=== PATIENT | male | born 1960 | race Caucasian/White ===

== ENCOUNTER 2025-03-22 10:07 | Emergency (ER) | payer MEDICARE, SELFPAY ==
[2025-03-22] VITALS (7 sets, daily range): BP systolic 110–176; BP diastolic 71–89
--- NOTE | 2025-03-22 10:18 | ED.GENMED ---
History of Present Illness
General
Chief Complaint: Breathing Problem
Time Seen by Provider: 03/22/25 10:08
History of Present Illness
History of Present Illness:
Patient is a 64-year-old male with past medical history of traumatic brain injury, hypertension, insomnia, secondary parkinsonism, hyperlipidemia, GERD, dysphagia, history of alcohol abuse, and depression, who currently resides at [facility]
residential care, here today for evaluation of approximately 4 days of a cough associated with congestion. He also endorses shortness of breath and chest tightness. He did have a fever of 101 �F 4 days ago but this has since resolved. No vomiting
or diarrhea. Of note, the patient also reports sustaining a fall last week landing on his right elbow. He sustained a small abrasion and initially had pain but this has since resolved. No pain related to the fall currently.
Past History
Past History
ED Past Medical History: HTN, Psychiatric (depression, schizophrenia, ETOHism) and Other (Traumatic brain injury, Cellulitis)
Social History
Tobacco: Smoker
Alcohol: Occasional
Drug: Former user
Personal:
Living: fpc ([facility] care)
Employment: Other
Family History
Family History: Other
Review of Systems
Review of Systems
All Other Systems: ROS reviewed and negative except as documented in HPI and ROS
Phy Exam
Physical Exam
Physical Exam:
GENERAL: Alert , in no apparent distress
EYE: Normal conjunctiva
NECK: Supple
ENT: o/p clr, mmm.
CARDIAC: Regular rate and rhythm .
LUNGS: Clear breath sounds bilaterally, no acute respiratory distress, no wheezes/rales/rhonchi
NEUROLOGICAL: Alert and oriented, no focal neuro deficits
SKIN: Warm and dry, skin intact.
MUSCULOSKELETAL: No edema, well perfused. Small abrasion along right elbow.
PSYCH: Normal and appropriate interaction.
Scores
Heart Failure Risk
Heart Failure Risk Score: Not Applicable
Course
Orders/Labs/Results
Orders:
Orders
03/22/25 10:12
EKG [Electrocardiogram (*1)] Urgent
Reason for Study: Shortness of Breath
EKG- Treatment ONCE
Chest [CR Chest - 2 Views ] Urgent
Comment:
Reason For Exam: cough sob
03/22/25 10:21
COVID-19 Antigen Urgent
Source: Nasal Swab
Complete Blood Count/With Diff Urgent
NT-proBNP Urgent
Troponin I Urgent
Influenza A+B Rapid Molecular Urgent
JAZMIN Source: Nasal Swab
Specimen Description:
03/22/25 10:22
Respiratory Syncytial Virus Urgent
JAZMIN Source: Nasal Swab
Specimen Description:
Date Specimen was Collected: 03/22/25
Time Specimen was Collected: 10:19
03/22/25 12:01
CT Chest With Iv Contrast Urgent
Comment:
Reason For Exam: abnormal cxr, cough sob
Basic Metabolic Panel Urgent
Abnormal Lab Results
03/22/25 03/22/25
10:21 12:01
RBC 3.62 L 10^6/uL
(4.70-6.10)
Hgb 10.4 L g/dL
(13.0-18.0)
Hct 31.9 L %
(39.0-52.0)
MCHC 32.6 L g/dL
(33.0-37.0)
RDW 15.3 H %
(11.5-14.5)
Abs Immat Gran (auto) 0.2 H 10^3/uL
(0-0.05)
Absolute Lymphs (auto) 1.1 L 10^3/uL
(1.2-3.4)
Absolute Monos (auto) 1.0 H 10^3/uL
(0.1-0.6)
Immature Gran % 2.9 H %
(0-0.5)
Lymphocytes % 14.8 L %
(20.5-51.1)
Monocytes % 13.1 H %
(1.7-9.3)
BUN 24 H mg/dl
(9-20)
03/22/25 10:21
03/22/25 12:01
Vital Signs
Initial and Last Documented VS:
Initial Vital Signs
Temp
97.8 F
03/22/25 10:09
Last Documented Vital Signs
Temp Pulse Resp BP Pulse Ox
97.7 F 59 20 165/89 98
03/22/25 16:48 03/22/25 16:48 03/22/25 16:48 03/22/25 16:48 03/22/25 16:48
MDM/Problems Addressed
Differential Diagnosis Includes:
Patient is a 64-year-old male with past medical history of traumatic brain injury, hypertension, insomnia, secondary parkinsonism, hyperlipidemia, GERD, dysphagia, history of alcohol abuse, and depression, who currently resides at [facility]
residential care, here today for evaluation of approximately 4 days of a cough associated with congestion, chest tightness, and shortness of breath. Overall, patient well-appearing on examination. Vital signs grossly within normal limits.
Physical examination described above. Will initiate viral testing. Will obtain screening labs, EKG, and chest x-ray. Will discuss with the care facility for additional information.
03/22/2025 14:42: Screening labs reveal mild anemia with a hemoglobin of 10.4. BUN 24 with a normal creatinine. COVID testing negative. BNP is elevated to 2039 however the patient does not appear fluid overloaded and does not appear to be in a
CHF exacerbation at this time. Troponin negative. Chest x-ray obtained revealed asymmetry of lung markings with possible atelectasis. Radiology recommended further evaluation with CT. This was performed which reveals findings most consistent
with pneumonia. There may be an element of mild atelectasis. There is also mild adenopathy and a trace right pleural effusion. I did contact the facility and spoke with the nurse longitudinal float operator who confirms the above history and is in agreement with
treatment plan at this time. The patient appears well overall and suitable for outpatient antibiotic therapy. Will provide therapy with azithromycin and amoxicillin. Recommend supportive measures and close follow-up with the patient's primary
care doctor. All questions answered. Stable for discharge.
*Pulse Oximetry
Patient hypoxic: no
*EKG
Interpreted by ED Provider?: Yes
EKG Intrepretation Date: 03/22/25
EKG Intrepretation Time: 10:35
Interpretation: normal
Comparison EKG: no changes
Heart Rate: 56
Rate: bradycardiac
Rhythm: sinus
[place]: normal axis
Interval: normal interval
QRS Pattern: normal QRS
Ischemia: no ischemia
*Critical Care Note
Total Time (30-74mins, 75-104mins- exclusive of procedures): Not Applicable
ED Attending Note
-
Portions of this chart may have been created with voice recognition software.� Occasional wrong word or��sound alike� substitutions may have occurred due to the inherent limitations of voice recognition software.
Discharge Plan
Departure
Patient Disposition: Home (Routine Discharge)
Date of Disposition: 03/22/25
Time of Disposition: 16:37
Patient with high blood pressure during this ER visit?: Yes
Condition: Fair
Covid-19: Negative COVID-19
Discharge Problem:
Pneumonia
Instructions: Pneumonia in adults - ED (DC)
Prescriptions:
New
amoxicillin 500 mg tablet
1,000 mg PO Q8H 7 Days Qty: 42 0RF
azithromycin 250 mg tablet
See Rx Instructions .ROUTE .COMPLEX 5 Days Qty: 6 0RF
Rx Instructions:
Take 2 tablets days 1
Take 1 tablet days 2-5
No Action
amantadine HCl 100 MG capsule
100 mg PO BID
trazodone 150 MG tablet
75 mg PO HS
divalproex 250 MG tablet,delayed release (DR/EC)
750 mg PO BID
omeprazole 20 MG capsule,delayed release(DR/EC)
20 mg PO DAILY
atenolol 50 MG tablet
50 mg PO DAILY
buspirone [BuSpar] 15 MG tablet
7.5 mg PO BID
lisinopril 20 MG tablet
20 mg PO BID
gabapentin 400 MG capsule
400 mg PO TID
melatonin 3 MG tablet
3 mg PO HS
aspirin 81 MG tablet,delayed release (DR/EC)
81 mg PO DAILY
clonidine HCl 0.2 MG tablet
0.2 mg PO BID
hydrochlorothiazide 25 MG tablet
25 mg PO DAILY
acetaminophen 325 MG tablet
650 mg PO Q6HPRN PRN (Reason: mild pain)
hydrocortisone 1 APPLIC cream
1 applic topical BID
diphenhydramine HCl [Banophen] 25 MG capsule
25 mg PO Q6HPRN PRN (Reason: skin rash)
clotrimazole 1 APPLIC solution
1 applic topical DAILY
Referrals:
Brodie Pompa DO [Family Provider, Internal Medicine] - Follow up in 5-7 days
Activity Restrictions/Additional Instructions:
You were seen today for evaluation of cough and shortness of breath.
Your blood work reveals mild anemia with a hemoglobin of 10.4.
We performed a CAT scan of your chest which reveals findings consistent with pneumonia which is a lung infection. There is also enlarged lymph nodes (adenopathy) present and fluid along the lower part of the right side of the lungs.
We are starting you on 2 oral antibiotics to take as directed.
Follow-up with your doctor within the next 5 to 7 days for close reevaluation.
Return for any new, worsening, or concerning symptoms.
Interventions
Interventions:
*Risk Screen - Suicide Last Done: 03/22/25 10:09
*General Assessment Last Done: 03/22/25 10:09
*Neglect/Abuse Screening Last Done: 03/22/25 10:09
*ED- Fall Risk Assessment Last Done: 03/22/25 10:11
*ED COVID-19 Vaccine History Last Done: 03/22/25 11:14
*Nursing Disposition Last Done: 03/22/25 16:48
ED- Cardiac Assessment Last Done: 03/22/25 11:12
ED- Pulmonary Assessment Last Done: 03/22/25 11:12
Discharge Date and Time
Print Language: LATVIAN
[2025-03-22 10:33] LABS: Hematocrit 31.9 % (39.0-52.0); Hemoglobin 10.4 g/dL (13.0-18.0); Mean Corp Hgb Conc. 32.6 g/dL (33.0-37.0); Mean Corpuscular Volume 88.1 fL (80.0-94.0); Nucleated Red Blood Cells % 0 % (-); Platelet Count 247 10^3/uL (130-400); Red Cell Dist. Width 15.3 % (11.5-14.5)
[2025-03-22 10:47] LABS: COVID-19 Antigen Negative (Negative)
[2025-03-22 11:11] LABS: Troponin I < 0.012 ng/ml
[2025-03-22 12:32] LABS: Blood Urea Nitrogen 24 mg/dl (9-20); Calcium 8.8 mg/dl (8.4-10.2); Carbon Dioxide 30 mmol/L (22-30); Chloride 106 mmol/L (98-107); Glucose 89 mg/dl (70-99); Potassium 4.4 mmol/L (3.5-5.1); Sodium 141 mmol/L (135-145); eGFR > 60.00
== END 2025-03-22 18:13 | disposition home or self-care (01) ==
LOC: EMR 10:07
PROVIDERS: Physician Assistant; EMERGENCY PHYSICIAN Emergency Medicine; FAMILY PHYSICIAN Internal Medicine Geriatric Medicine
DX: J18.9 Pneumonia, unspecified organism (principal); I10 Essential (primary) hypertension; E78.5 Hyperlipidemia, unspecified; F17.200 Nicotine dependence, unspecified, uncomplicated; Z87.820 Personal history of traumatic brain injury; Z11.52 Encounter for screening for COVID-19
CPT/HCPCS: 99285; 71046; 71260; 80048; 83880; 84484; 85025; 87502; 87807; 87811; 93005; Q9967

== ENCOUNTER 2025-07-12 12:51 | Emergency (ER) | payer OTHER, SELFPAY ==
[2025-07-12 12:51] VITALS: BMI 26.5
[2025-07-12 12:57] VITALS: BP 159/78
[2025-07-12 13:27] LABS: Hematocrit 34.5 % (39.0-52.0); Hemoglobin 11.4 g/dL (13.0-18.0); Mean Corp Hgb Conc. 33.0 g/dL (33.0-37.0); Mean Corpuscular Volume 92.0 fL (80.0-94.0); Nucleated Red Blood Cells % 0 % (-); Platelet Count 307 10^3/uL (130-400); Red Cell Dist. Width 14.4 % (11.5-14.5)
[2025-07-12 13:53] LABS: ALT (SGPT) 12 U/L (0-50); AST (SGOT) 17 U/L (17-59); Albumin 4.4 g/dl (3.5-5.0); Alkaline Phosphatase 45 U/L (38-126); Blood Urea Nitrogen 24 mg/dl (9-20); Calcium 9.4 mg/dl (8.4-10.2); Carbon Dioxide 29 mmol/L (22-30); Chloride 104 mmol/L (98-107); Glucose 100 mg/dl (70-99); Potassium 4.7 mmol/L (3.5-5.1); Sodium 140 mmol/L (135-145); Total Protein 7.3 g/dl (6.3-8.2); eGFR > 60.00
[2025-07-12 16:41] LABS: Urine Character Clear (Clear)
--- NOTE | 2025-07-12 16:43 | ED.GENMED ---
History of Present Illness
General
Chief Complaint: Fall
Time Seen by Provider: 07/12/25 14:42
History of Present Illness
History of Present Illness:
Patient is a 61-year-old male past medical history of TBI, bipolar disorder and hypertension who presents after multiple falls at his facility this afternoon. Symptoms around the falls are unclear. Patient reports ambulate dysfunction at baseline
and states that he feels like his knees are tight
Past History
Past History
ED Past Medical History: HTN, Psychiatric (depression, schizophrenia, ETOHism) and Other (Traumatic brain injury, Cellulitis)
Social History
Tobacco: Smoker
Alcohol: Occasional
Drug: Former user
Personal:
Living: residential ([facility])
Employment: Other
Family History
Family History: Other
Phy Exam
General Physical Exam
General Presentation: well appearing and no apparent distress
General Skin: warm and dry
General Habitus: normal
General Mental: alert
General Hydration: appears well hydrated
ENT Exam
ENT Exam: EOMI, pharynx normal, neck supple and normocephalic
Eye Exam
Eye Exam: PERRL, cornea clear and conjunctiva normal
Cardiovascular Exam
Cardiovascular Exam: regular rate/rhythm, no edema, no murmur and normal peripheral pulses
Pulmonary Exam
Pulmonary Exam: lungs clear, no respiratory distress, no rales, no crackles, no rhonchi, no stridor, no wheezing and no cough
Gastrointestinal Exam
Gastrointestinal Exam: normal bowel sounds, non tender, soft, no organomegaly, no pulsatile mass and non distended
Neurological Exam
Neurological Exam: alert, oriented x3, no motor deficits and speech normal
Musculoskeletal Exam
Musculoskeletal Exam: full ROM and no edema
Skin Exam
Skin Exam: normal color, warm/dry, no rash and no petechia
Psychiatric Exam
Psychiatric Exam: normal mood/affect
Course
Orders/Labs/Results
Orders:
Orders
07/12/25 13:09
Complete Blood Count/With Diff Urgent
Comprehensive Metabolic Panel Urgent
07/12/25 15:04
CT Head W/o Iv Contrast Urgent
Comment:
Reason For Exam: falls
07/12/25 16:29
Urinalysis Reflex To Culture Urgent
Date Specimen was Collected: 07/12/25
Time Specimen was Collected: 15:53
Urine Microscopic Reflex Cult Urgent
Abnormal Lab Results
07/12/25 07/12/25
13:09 16:29
RBC 3.75 L 10^6/uL
(4.70-6.10)
Hgb 11.4 L g/dL
(13.0-18.0)
Hct 34.5 L %
(39.0-52.0)
MPV 11.5 H fL
(7.4-10.4)
BUN 24 H mg/dl
(9-20)
Glucose 100 H mg/dl
(70-99)
Urine Bacteria (Reflex) Few A
(Negative)
Urine Albumin (Reflex) 1+ A
(Neg - Trace)
07/12/25 13:09
07/12/25 13:09
Vital Signs
Initial and Last Documented VS:
Initial Vital Signs
Temp Pulse Resp BP Pulse Ox
36.8 C 54 16 159/78 100
07/12/25 12:57 07/12/25 12:57 07/12/25 12:57 07/12/25 12:57 07/12/25 12:57
Last Documented Vital Signs
Temp Pulse Resp BP Pulse Ox
36.8 C 54 16 159/78 100
07/12/25 12:57 07/12/25 12:57 07/12/25 12:57 07/12/25 12:57 07/12/25 16:43
MDM/Problems Addressed
Differential Diagnosis Includes:
Able to range knees without difficulty. No bony tenderness. No external signs of trauma on physical exam. CT head obtained and negative for any acute intracranial pathology. CBC without leukocytosis. Patient afebrile. UA negative for any
obvious infection. Patient medically stable to return to facility. Will will arrange transport. Return precautions discussed and documented in his discharge paperwork
*Pulse Oximetry
SaO2: 100
Oxygen Mode of Delivery: Room air
Patient hypoxic: no
*Critical Care Note
Total Time (30-74mins, 75-104mins- exclusive of procedures): Not Applicable
ED Attending Note
-
Portions of this chart may have been created with voice recognition software.� Occasional wrong word or��sound alike� substitutions may have occurred due to the inherent limitations of voice recognition software.
Discharge Plan
Departure
Patient Disposition: Home (Routine Discharge)
Date of Disposition: 07/12/25
Time of Disposition: 17:25
Patient with high blood pressure during this ER visit?: No
Discharge Problem:
Fall, History of traumatic brain injury
Instructions: Preventing falls - ED (DC)
Prescriptions:
No Action
amantadine HCl 100 MG capsule
100 mg PO BID
trazodone 150 MG tablet
75 mg PO HS
divalproex 250 MG tablet,delayed release (DR/EC)
750 mg PO BID
omeprazole 20 MG capsule,delayed release(DR/EC)
20 mg PO DAILY
atenolol 50 MG tablet
50 mg PO DAILY
buspirone [BuSpar] 15 MG tablet
7.5 mg PO BID
lisinopril 20 MG tablet
20 mg PO BID
gabapentin 400 MG capsule
400 mg PO TID
melatonin 3 MG tablet
3 mg PO HS
aspirin 81 MG tablet,delayed release (DR/EC)
81 mg PO DAILY
clonidine HCl 0.2 MG tablet
0.2 mg PO BID
hydrochlorothiazide 25 MG tablet
25 mg PO DAILY
acetaminophen 325 MG tablet
650 mg PO Q6HPRN PRN (Reason: mild pain)
hydrocortisone 1 APPLIC cream
1 applic topical BID
diphenhydramine HCl [Banophen] 25 MG capsule
25 mg PO Q6HPRN PRN (Reason: skin rash)
clotrimazole 1 APPLIC solution
1 applic topical DAILY
amoxicillin 500 mg tablet
1,000 mg PO Q8H 7 Days Qty: 42 0RF
azithromycin 250 mg tablet
See Rx Instructions .ROUTE .COMPLEX 5 Days Qty: 6 0RF
Rx Instructions:
Take 2 tablets days 1
Take 1 tablet days 2-5
Referrals:
Brodie Pompa DO [Family Provider, Internal Medicine]
Activity Restrictions/Additional Instructions:
The CT scan of your head showed no acute intracranial injury. All blood work and urine test was negative for any evidence of infection. Please return to the ER for worsening headaches, dizziness, or other concerning symptoms.
Interventions
Interventions:
*Risk Screen - Suicide (C-SSRS) Last Done: 07/12/25 12:57
ED-Musculoskeletal Assessment Last Done: 07/12/25 15:01
ED- Neurological Assessment Last Done: 07/12/25 14:54
ED-Skin Assessment Last Done: 07/12/25 14:54
Discharge Date and Time
Print Language: THAI
[2025-07-12 16:53] LABS: Urine Red Blood Cell 0-2 /HPF (0-2); Urine Squamous Cell 0-2 /LPF (Few); Urine White Cell 0-2 /HPF (0-5)
[2025-07-12 18:00] VITALS: BP 134/74
== END 2025-07-12 21:44 | disposition home or self-care (01) ==
LOC: EMR 12:51
PROVIDERS: Surgery Trauma Surgery; EMERGENCY PHYSICIAN Emergency Medicine; FAMILY PHYSICIAN Internal Medicine Geriatric Medicine
DX: Z04.3 Encounter for examination and observation following other accident (principal); W19.XXXA Unspecified fall, initial encounter; Z87.820 Personal history of traumatic brain injury; R29.6 Repeated falls; R26.9 Unspecified abnormalities of gait and mobility; I10 Essential (primary) hypertension; F31.9 Bipolar disorder, unspecified; F20.9 Schizophrenia, unspecified; F10.20 Alcohol dependence, uncomplicated; F17.200 Nicotine dependence, unspecified, uncomplicated
CPT/HCPCS: 99284; 70450; 80053; 81003; 81015; 85025